=== PATIENT | female | born 1955 | race Caucasian/White ===

== ENCOUNTER → 2020-10-17 | Outpatient (CLI) | payer MEDICARE ==
[2020-10-18 11:14] LABS: CREATININE, URINE 30.4 mg/dL (Not Estab.); MICROALB/CREAT RATIO <10 (0-29)
== END ==
LOC: US 14:00
PROVIDERS: Internal Medicine Nephrology
DX: N18.30 Chronic kidney disease, stage 3 unspecified (principal)
CPT/HCPCS: 81001; 82043; 82570; 84156; 89050

== ENCOUNTER → 2020-10-21 | Outpatient (CLI) | payer MEDICARE | LOC: KOH-I 13:06 | DX: N13.30 Unspecified hydronephrosis (principal); R91.1 Solitary pulmonary nodule | CPT/HCPCS: 74176 ==

== ENCOUNTER → 2021-01-12 | Outpatient (CLI) | payer MEDICARE | LOC: KOH-I 11:19 | DX: M41.9 Scoliosis, unspecified (principal); R05 Cough | CPT/HCPCS: 71046; 72070; 72100 ==

== ENCOUNTER → 2021-01-17 | Outpatient (CLI) | payer MEDICARE | LOC: EMI 14:26 | DX: M41.9 Scoliosis, unspecified (principal); M47.814 Spondylosis without myelopathy or radiculopathy, thoracic region; M48.04 Spinal stenosis, thoracic region; M81.0 Age-related osteoporosis without current pathological fracture | CPT/HCPCS: 72146; 77080 ==

== ENCOUNTER → 2021-04-26 | Outpatient (CLI) | payer MEDICARE | LOC: KOH-I 02-24 14:30 | DX: R91.1 Solitary pulmonary nodule (principal) | CPT/HCPCS: 71250 ==